=== PATIENT | female | born 1975 | race Two or more races ===

== ENCOUNTER 2020-10-26 17:28 | Inpatient (IN) | payer OTHER ==
[2020-10-27] MEDS ORDERED: OMEPRAZOLE20 MG (08:18)
[2020-10-27] MEDS ORDERED: GLIPIZIDE-METF1 EACH (08:18)
[2020-10-27] MEDS ORDERED: ELETRIPTAN HBR20 MG (08:18)
[2020-10-27] MEDS ORDERED: PANTOPRAZOLE SO40 MG (08:19)
[2020-10-27] MEDS ORDERED: FLURBIPROFEN100 MG (08:19)
[2020-10-31] MEDS ORDERED: TRAMADOL HCL50 MG PO (09:32)
[2020-11-29] MEDS ORDERED: GRALISE600 MG PO (08:55)
[2020-11-29] MEDS ORDERED: INTESTINEX680 M1 PO (08:56)
== END 2020-10-31 13:19 | disposition home or self-care (01) | DRG 334 ==
LOC: SURH 17:28
PROVIDERS: ADMIT Surgery; ATTEND Surgery
PROC: 3E0H8KZ Introduction of Other Diagnostic Substance into Lower GI, Via Natural or Artificial Opening Endoscopic (ICD-10-PCS; principal; 2020-10-27)
PROC: 0DBN8ZX Excision of Sigmoid Colon, Via Natural or Artificial Opening Endoscopic, Diagnostic (ICD-10-PCS; 2020-10-27)
PROC: 0DBP4ZZ Excision of Rectum, Percutaneous Endoscopic Approach (ICD-10-PCS; 2020-10-28)
PROC: 07BB4ZX Excision of Mesenteric Lymphatic, Percutaneous Endoscopic Approach, Diagnostic (ICD-10-PCS; 2020-10-28)
PROC: 3E0F7SF Introduction of Other Gas into Respiratory Tract, Via Natural or Artificial Opening (ICD-10-PCS; 2020-10-28)
DX: C18.6 Malignant neoplasm of descending colon (principal); R59.0 Localized enlarged lymph nodes; K63.5 Polyp of colon; K64.8 Other hemorrhoids; Z20.822 Contact with and (suspected) exposure to COVID-19

== ENCOUNTER 2020-12-02 05:55 | Day surgery (SDC) | payer OTHER ==
[~2020-12-02 05:55] MED LIST: ELETRIPTAN HBR20 MG; FLURBIPROFEN100 MG; GLIPIZIDE-METF1 EACH; GRALISE600 MG PO; INTESTINEX680 M1 PO; OMEPRAZOLE20 MG; PANTOPRAZOLE SO40 MG; TRAMADOL HCL50 MG PO
[2020-12-02] MEDS ORDERED: ULTRAM50 MG PO (14:57)
== END 2020-12-02 18:05 | disposition home or self-care (01) ==
LOC: CIR.AMB 05:55
PROVIDERS: ATTEND Surgery
DX: C18.6 Malignant neoplasm of descending colon (principal); Z20.822 Contact with and (suspected) exposure to COVID-19
CPT/HCPCS: 36561; C1751

== ENCOUNTER 2022-02-05 14:12 | Inpatient (IN) | payer OTHER ==
[~2022-02-05] VITALS: Ht 162.6 cm; Wt 67.1 kg
[~2022-02-05 14:12] MED LIST changes: +ULTRAM50 MG PO
[2022-02-08] MEDS ORDERED: ELETRIPTAN HBR20 MG (14:10)
[2022-02-08] MEDS ORDERED: OMEPRAZOLE20 MG (14:10)
== END 2022-02-09 11:56 | disposition home or self-care (01) | DRG 737 ==
LOC: O/R 02-08 07:00 → SURH 02-08 12:15 → OB/GYN 02-08 18:41
PROVIDERS: ADMIT Obstetrics & Gynecology Gynecologic Oncology; ATTEND Obstetrics & Gynecology Gynecologic Oncology
PROC: 07BC4ZZ Excision of Pelvis Lymphatic, Percutaneous Endoscopic Approach (ICD-10-PCS; 2022-02-08)
PROC: 0UT74ZZ Resection of Bilateral Fallopian Tubes, Percutaneous Endoscopic Approach (ICD-10-PCS; 2022-02-08)
PROC: 0UT24ZZ Resection of Bilateral Ovaries, Percutaneous Endoscopic Approach (ICD-10-PCS; 2022-02-08)
PROC: 0DNW4ZZ Release Peritoneum, Percutaneous Endoscopic Approach (ICD-10-PCS; 2022-02-08)
PROC: 3E1M48Z Irrigation of Peritoneal Cavity using Irrigating Substance, Percutaneous Endoscopic Approach (ICD-10-PCS; 2022-02-08)
PROC: 0UT94ZZ Resection of Uterus, Percutaneous Endoscopic Approach (ICD-10-PCS; principal; 2022-02-08 12:15)
DX: C79.61 Secondary malignant neoplasm of right ovary (principal); C18.6 Malignant neoplasm of descending colon; D25.1 Intramural leiomyoma of uterus; N80.2 Endometriosis of fallopian tube; Z20.822 Contact with and (suspected) exposure to COVID-19; N83.02 Follicular cyst of left ovary